=== PATIENT | female | born 1955 | race Caucasian/White ===

== ENCOUNTER 2024-03-07 04:22 | Day surgery (SDC) | payer OTHER, BC ==
[2024-03-01 14:53] VITALS: BMI 20.6
[2024-03-07 09:17] VITALS: PULSE 80
[2024-03-07 09:29] VITALS: BP 115/57; RESP 16; TEMP 98.2
== END 2024-03-07 09:20 | disposition home or self-care (01) ==
LOC: JASU-ENDO 04:22
PROVIDERS: ATTEND Internal Medicine Gastroenterology
PROC: 0DBN8ZX Excision of Sigmoid Colon, Via Natural or Artificial Opening Endoscopic, Diagnostic (ICD-10-PCS; principal; 2024-03-07 08:00)
DX: Z12.11 Encounter for screening for malignant neoplasm of colon (principal); D12.5 Benign neoplasm of sigmoid colon; Z86.0100 Personal history of colon polyps, unspecified
CPT/HCPCS: 88305-TC